=== PATIENT | female | born 1995 | race Asian ===

== ENCOUNTER 2023-10-29 20:31 | Inpatient (IN) ==
[2023-10-29] MEDS ORDERED: CALCIUM CARBONATE 500 MG CHEWABLE TAB PO PRN (20:51)
[2023-10-29] MEDS ORDERED: OXYTOCIN 30 UNITS/NSS 30 UNITS/500 ML BAG IV PRN (20:51)
[2023-10-29] MEDS ORDERED: ACETAMINOPHEN 500 MG TAB PO PRN (20:51)
[2023-10-29] MEDS ORDERED: LIDOCAINE 1% LOCAL 20 ML VIAL INFIL PRN (20:51)
--- NOTE | 2023-10-29 21:12 | History & Physical Report ---
Date of Service October 29, 2023 Assessment & Plan (1) Previous delivery affecting : Plan: Patient is a 28-year-old female with prior section done without trial of labor for severe preeclampsia at 35 weeks [place] her home country presents with spontaneous rupture of membranes for clear fluid and spontaneous onset of contractions. She would like to have a trial of labor and she understands the risks for delivery and had signed consent in the office at a prior visit. heart tracing is reassuring although her contractions are still fairly spaced apart. And she is grossly ruptured. She will walk and have intermittent monitoring at this time to see if this will help to get a better contraction pattern. Epidural when requested. Pitocin augmentation is an option if contractions do not begin to get more regular on their own. Admission and Anticipated Discharge Date Admission Date: October 29, 2023 History of Present Illness Primary Care Provider: NO PCP Patient is a 28-year-old 2 para 0-1-0-1 female EDC 11/10/2023 who presents at 38-2/7 weeks with spontaneous rupture membranes for clear fluid at 1900 hrs. she then began having spontaneous contractions that are currently between 10 to 15 minutes apart. GBS is negative. has been complicated by a prior section done at 35 weeks for severe preeclampsia there was no trial of labor offered to the patient. [place] and she does have the operative report that states her scar is a low transverse type. She would like a trial of labor if possible. consent had been signed during one of her prior office visits. Allergies Allergy/AdvReac Type Severity Reaction Status Date / Time No Known Allergies Allergy Verified 10/22/23 09:42 Home Medications Medication Instructions Recorded Confirmed Type xviotkoj-dsq-Hq-FA 1 mg PO DAILY 05/07/23 10/27/23 History [] aspirin 81 mg tablet,delayed 81 mg PO DAILY 07/22/23 10/27/23 History release (Adult Aspirin Regimen) breast pump #1 ea 09/02/23 10/22/23 Rx Patient History Medical History delivery Chicken pox Breast fibroadenoma Surgical History S/P section Family History Denies family history of Ovarian cancer Prostate cancer Breast cancer Colorectal cancer Social History Smoking Status: Never smoker Do You Dip or Chew Tobacco: No; Hx Alcohol Use: No Hx Substance Use: No Preferred Language: Ghanaian marital status: marital status details: Shaw Cardozo (28) [phone] Current Living Situation: Spouse and Family Current Living Situation Comment: lives with , daughter, no pets current occupational status: employed current occupation: remote work Feels Safe at Home: Yes Review of Systems All systems reviewed & are unremarkable except as noted in HPI & below Physical Exam Constitutional: WD/WN, vitals as above Psychiatric: A+Ox3, euthymic affect Genitourinary: OB Exam Abdomen: + vertex and + regular contractions (Q10-15 mins- moderate) Manual OB Exam: + cervical dilation 1 cm, + cervical effacem ent 50% and + station -1 OB Exam Monitor Tracing: + external FHT monitor used, + external uterine monitor used, + category I and + normal FHT variability Results & Data Vital Signs (Past 12 Hours) Vital Signs Pulse BP 10/29/23 20:44 82 120/85 Code Status & VTE Plan VTE Prophylaxis Plan VTE Prophylaxis will be ordered: No Coding Level of Care Code None Diagnoses Previous delivery affecting O34.219
[2023-10-29 21:17] LABS: Hematocrit (blood only) 34.9 % (37.0-47.0); Hemoglobin 10.8 g/dl (12.0-16.0); Mean Corpuscular Hemoglobin 25.4 pg (25.0-34.0); Mean Corpuscular Hgb Conc 30.9 g/dL (32.0-36.0); Mean Corpuscular Volume 82.1 fL (80.0-100.0); Mean Platelet Volume 9.9 fL (9.4-12.4); Platelet Count 325 K/uL (130-400); Red Blood Count 4.25 M/uL (4.20-5.40); White Blood Count 10.45 K/ul (4.8-10.8)
[2023-10-29] MEDS: LACTATED RINGER'S 1,000 ML IV PRN (21:43)
[2023-10-29] MEDS ORDERED: ePHEDrine sulfate 50 MG/ML AMP ONE (21:54)
[2023-10-29] MEDS ORDERED: LIDOCAINE 2% MPF LOCAL 5 ML VIAL EPI PRN (22:07)
[2023-10-29] MEDS ORDERED: ROPIVACAINE 0.5% PF 5 MG/ML 20 ML VIAL EPI PRN (22:07)
[2023-10-29] MEDS ORDERED: SODIUM CHLORIDE 0.9% PF INJ 10 ML VIAL EPI PRN (22:07)
[2023-10-29] MEDS ORDERED: diphenhydrAMINE 50 MG/ML VIAL IV PRN (22:07)
[2023-10-29] MEDS ORDERED: NALBUPHINE HCL 5 MG in SYRINGE 0 ML IV PRN (22:07)
[2023-10-29] MEDS ORDERED: BUPIVACAINE 0.25% PF 30 ML VIAL EPI STA (22:07)
[2023-10-29] MEDS ORDERED: ePHEDrine sulfate 50 MG/ML AMP IV PRN (22:07)
[2023-10-29] MEDS ORDERED: BUPIVACAINE 0.25% PF 30 ML VIAL EPI PRN (22:07)
[2023-10-29] MEDS ORDERED: fentaNYL citrate PF 100 MCG/2 ML VIAL EPI PRN (22:07)
[2023-10-29] MEDS ORDERED: SODIUM CHLORIDE 0.9% PF INJ 10 ML VIAL EPI STA (22:07)
[2023-10-29] MEDS ORDERED: LIDOCAINE 2%/EPINEPHRINE 1:200,000 20 ML PF EPI STA (22:07)
[2023-10-29] MEDS ORDERED: NALOXONE HCL 0.4 MG/1 ML VIAL/CARP IV PRN (22:07)
[2023-10-29] MEDS ORDERED: NALOXONE HCL 1 MG in SODIUM CHLORIDE 0.9% 1,000 ML IV PRN (22:07)
[2023-10-29] MEDS ORDERED: fentaNYL citrate PF 100 MCG/2 ML VIAL EPI STA (22:07)
--- NOTE | 2023-10-29 22:07 | Anesthesiology Consultation ---
Date of Service October 29, 2023 Assessment & Plan Chart Review Chart Review: Patient NOT seen in Pre Admission Testing and Acceptable Risk for Labor Epidural Consults Requested none History Height/Weight Height: 5 ft 0.24 in Weight: 72.756 kg Allergies Allergy/AdvReac Type Severity Reaction Status Date / Time No Known Allergies Allergy Verified 10/22/23 09:42 Medications Home Medications Medication Instructions Recorded Confirmed Last Taken usjjfncq-jnb-Mf-FA 1 mg PO DAILY 05/07/23 10/27/23 Unknown [] aspirin 81 mg tablet,delayed 81 mg PO DAILY 07/22/23 10/27/23 Unknown release (Adult Aspirin Regimen) breast pump #1 ea 09/02/23 10/22/23 Unknown Past Medical History Medical History delivery Chicken pox Breast fibroadenoma Past Family History Family History Denies family history of Ovarian cancer Prostate cancer Breast cancer Colorectal cancer Past Surgical History Surgical History S/P section Social History Smoking Status: Never smoker Do You Dip or Chew Tobacco: No Hx Alcohol Use: No Hx Substance Use: No substance use type: does not use Physical Exam Vital Signs Last Vital Signs Pulse 82 10/29/23 20:59 Resp 20 10/29/23 20:59 BP 120/85 10/29/23 20:59 Testing Laboratory Results 10/29/23 21:01
[2023-10-29] MEDS: fentaNYL citrate PF 100 MCG/2 ML VIAL ONE (22:31)
[2023-10-29] MEDS: SODIUM CHLORIDE 0.9% PF INJ 10 ML VIAL ONE (22:32)
[2023-10-29] MEDS: LIDOCAINE 2%/EPINEPHRINE 1:200,000 20 ML PF ONE (22:32)
[2023-10-29] MEDS: BUPIVACAINE 0.25% PF 30 ML VIAL ONE (22:32)
[2023-10-29] MEDS: fentANYL 2 MCG/ML BUPIVacaine 0.125%-NSS 100ML BAG ONE (22:33)
[2023-10-30] MEDS: ONDANSETRON INJ 2 MG/ML 2 ML VIAL IV PRN (04:42)
[2023-10-30] MEDS: ACETAMINOPHEN 1,000 MG/100 ML VIAL IV STA ×2 (06:07→06:11)
[2023-10-30] MEDS: fentANYL 2 MCG/ML BUPIVacaine 0.125%-NSS 100ML BAG EPI PRN (06:57)
[2023-10-30] MEDS ORDERED: fentaNYL citrate PF 100 MCG/2 ML VIAL ONE (07:33)
[2023-10-30] MEDS ORDERED: LIDOCAINE 2% MPF LOCAL 5 ML VIAL ONE (07:33)
--- NOTE | 2023-10-30 10:32 | Labor Progress Brief Note ---
Date of Service October 30, 2023 Subjective Comfortable with epidural. FHT Cat 1 [place] Q 4 SVE anterior lip, 100, 1+ Cervix retractible with practice push. Will start pushing. Assessment & Plan Admission and Anticipated Discharge Date Admission Date: October 29, 2023 Results & Data Vital Signs (Past 12 Hours) Vital Signs Temp Pulse Resp BP Pulse Ox O2 Del Method 10/30/23 10:27 84 100 10/30/23 10:22 84 98 10/30/23 10:19 83 127/82 10/30/23 10:17 94 H 99 10/30/23 10:12 85 97 10/30/23 10:07 86 97 10/30/23 10:06 82 124/82 10/30/23 10:02 84 98 10/30/23 10:00 18 10/30/23 10:00 18 10/30/23 09:57 88 97 10/30/23 09:52 82 97 10/30/23 09:49 88 102/70 10/30/23 09:47 83 98 10/30/23 09:42 83 98 10/30/23 09:37 80 98 10/30/23 09:34 79 112/72 10/30/23 09:32 79 98 10/30/23 09:27 67 100 10/30/23 09:22 88 98 10/30/23 09:20 87 117/60 10/30/23 09:17 89 100 10/30/23 09:15 16 10/30/23 09:15 36.9 C 16 10/30/23 09:12 85 97 10/30/23 09:07 97 10/30/23 09:07 83 10/30/23 09:07 82 128/73 10/30/23 09:02 85 97 10/30/23 09:00 18 10/30/23 09:00 18 10/30/23 08:57 84 98 10/30/23 08:52 79 99 10/30/23 08:51 91 H 106/64 10/30/23 08:47 88 99 10/30/23 08:42 90 98 10/30/23 08:37 95 H 97 10/30/23 08:36 83 116/59 L 10/30/23 08:32 86 97 10/30/23 08:27 88 97 10/30/23 08:22 89 97 10/30/23 08:20 84 109/58 L 10/30/23 08:17 89 98 10/30/23 08:12 90 98 10/30/23 08:07 90 97 10/30/23 08:05 90 112/69 10/30/23 08:02 97 H 98 10/30/23 07:57 96 H 98 10/30/23 07:52 88 97 10/30/23 07:50 85 117/60 10/30/23 07:47 93 H 96 10/30/23 07:42 98 H 97 10/30/23 07:37 87 97 10/30/23 07:36 97 H 121/71 10/30/23 07:32 106 H 97 10/30/23 07:27 100 H 96 10/30/23 07:22 97 H 97 10/30/23 07:20 103 H 118/64 10/30/23 07:17 97 H 96 10/30/23 07:12 95 H 97 10/30/23 07:11 Room Air 10/30/23 07:11 102 H 111/59 L 10/30/23 07:10 18 10/30/23 07:10 37.1 C 18 10/30/23 07:07 101 H 96 10/30/23 07:06 96 H 113/61 10/30/23 07:02 106 H 97 10/30/23 07:00 18 10/30/23 07:00 18 10/30/23 06:57 100 H 96 10/30/23 06:52 90 96 10/30/23 06:50 93 H 108/57 L 10/30/23 06:47 105 H 98 10/30/23 06:42 104 H 98 10/30/23 06:37 103 H 98 10/30/23 06:36 100 H 114/63 10/30/23 06:32 96 H 98 10/30/23 06:27 95 H 99 10/30/23 06:22 105 H 98 10/30/23 06:20 101 H 103/70 10/30/23 06:17 107 H 98 10/30/23 06:12 97 H 99 10/30/23 06:07 103 H 100 10/30/23 06:05 95 H 99/54 L 10/30/23 06:02 91 H 97 10/30/23 05:57 92 H 98 10/30/23 05:52 95 H 98 10/30/23 05:50 91 H 100/52 L 10/30/23 05:47 99 H 98 10/30/23 05:45 38.2 C H 10/30/23 05:42 101 H 99 10/30/23 05:37 101 H 98 10/30/23 05:34 92 H 101/57 L 10/30/23 05:32 89 97 10/30/23 05:27 101 H 99 10/30/23 05:22 97 H 98 10/30/23 05:19 80 107/57 L 10/30/23 05:17 79 99 10/30/23 05:12 80 98 10/30/23 05:07 81 98 10/30/23 05:05 83 108/57 L 10/30/23 05:02 81 97 10/30/23 04:57 78 99 10/30/23 04:52 84 100 10/30/23 04:50 16 10/30/23 04:50 16 10/30/23 04:49 94 H 107/59 L 10/30/23 04:47 89 100 10/30/23 04:42 114 H 99 10/30/23 04:37 107 H 100 10/30/23 04:35 81 108/59 L 10/30/23 04:32 89 100 10/30/23 04:27 94 H 96 10/30/23 04:22 88 100 10/30/23 04:19 102 H 102/59 L 10/30/23 04:18 18 10/30/23 04:18 36.8 C 18 10/30/23 04:17 96 H 100 10/30/23 04:12 87 100 10/30/23 04:07 85 99 10/30/23 04:04 93 H 101/57 L 10/30/23 04:02 88 98 10/30/23 03:57 84 98 10/30/23 03:52 86 97 10/30/23 03:49 89 96/53 L 10/30/23 03:47 83 97 10/30/23 03:42 89 97 10/30/23 03:37 88 97 10/30/23 03:34 91 H 103/56 L 10/30/23 03:32 82 98 10/30/23 03:27 83 97 10/30/23 03:22 88 97 10/30/23 03:19 94 H 98/56 L 10/30/23 03:17 84 97 10/30/23 03:12 84 97 10/30/23 03:07 86 97 10/30/23 03:04 87 107/62 10/30/23 03:02 84 97 10/30/23 02:57 85 97 10/30/23 02:52 84 97 10/30/23 02:49 89 104/67 10/30/23 02:47 93 H 98 10/30/23 02:42 95 H 97 10/30/23 02:37 98 H 97 10/30/23 02:34 94 H 96/58 L 10/30/23 02:32 100 H 99 10/30/23 02:27 98 H 98 10/30/23 02:24 16 10/30/23 02:24 37.0 C 16 10/30/23 02:22 84 98 10/30/23 02:19 83 108/62 10/30/23 02:17 81 96 10/30/23 02:12 87 97 10/30/23 02:07 91 H 98 10/30/23 02:04 91 H 100/55 L 10/30/23 02:02 90 97 10/30/23 01:57 91 H 97 10/30/23 01:52 95 H 98 10/30/23 01:49 86 92/51 L 10/30/23 01:47 81 97 10/30/23 01:42 87 97 10/30/23 01:37 88 98 10/30/23 01:34 98 H 106/56 L 10/30/23 01:32 88 98 10/30/23 01:27 86 98 10/30/23 01:22 89 98 10/30/23 01:19 88 106/63 10/30/23 01:17 88 99 10/30/23 01:12 89 98 10/30/23 01:07 85 99 10/30/23 01:04 83 109/65 10/30/23 01:02 88 99 10/30/23 00:57 88 100 10/30/23 00:52 86 99 10/30/23 00:49 75 107/67 10/30/23 00:47 89 99 10/30/23 00:42 86 99 10/30/23 00:37 82 99 10/30/23 00:35 16 10/30/23 00:35 36.8 C 16 10/30/23 00:34 83 10/30/23 00:34 87 108/70 92 10/30/23 00:32 93 H 99 10/30/23 00:27 93 H 99 10/30/23 00:22 91 H 99 10/30/23 00:20 82 104/68 10/30/23 00:17 100 H 100 10/30/23 00:12 88 98 10/30/23 00:07 90 99 10/30/23 00:04 90 100/62 10/30/23 00:02 76 99 10/29/23 23:57 86 98 10/29/23 23:52 78 97 10/29/23 23:50 79 111/65 10/29/23 23:49 88 107/61 10/29/23 23:47 80 98 10/29/23 23:42 77 98 10/29/23 23:37 82 99 10/29/23 23:35 75 99/59 L 10/29/23 23:32 80 100 10/29/23 23:27 74 100 10/29/23 23:22 75 100 10/29/23 23:20 78 101/66 10/29/23 23:17 83 99 10/29/23 23:12 73 100 10/29/23 23:07 73 100 10/29/23 23:02 100 10/29/23 23:02 74 10/29/23 23:02 74 109/67 10/29/23 22:57 100 10/29/23 22:57 73 10/29/23 22:57 78 107/63 10/29/23 22:52 100 10/29/23 22:52 85 10/29/23 22:52 84 114/72 10/29/23 22:47 87 114/70 100 10/29/23 22:43 96 H 113/64 10/29/23 22:42 99 H 100 10/29/23 22:37 87 100 10/29/23 22:36 89 114/67 10/29/23 22:35 36.7 C 10/29/23 22:34 83 114/71 10/29/23 22:32 90 100 06/25/24 22:31 86 125/65 Coding Level of Care Code None
--- NOTE | 2023-10-30 12:04 | Labor Progress Brief Note ---
Date of Service October 30, 2023 Subjective pt feeling urge to push. Assessment & Plan (1) Desires (vaginal after ) trial: Plan begin 2nd stage. anticip . fhts categ 1, occas variable, categ 2. Admission and Anticipated Discharge Date Admission Date: October 29, 2023 Physical Exam Constitutional: WD/WN, vitals as above Genitourinary: Manual OB Exam: + cervical dilation 10 cm, + cervical effacement 100% and + station + 3 OB Exam Monitor Tracing: + external FHT monitor used, + external uterine monitor used (q2-3), + category I and + normal FHT variability pushed with good maternal effort. Results & Data Vital Signs (Past 12 Hours) Vital Signs Temp Pulse Resp BP Pulse Ox O2 Del Method 10/30/23 11:57 101 H 100 10/30/23 11:52 94 H 97 10/30/23 11:49 89 114/68 10/30/23 11:47 94 H 97 10/30/23 11:42 94 H 98 10/30/23 11:37 95 H 96 10/30/23 11:35 89 112/71 10/30/23 11:32 88 97 10/30/23 11:30 18 10/30/23 11:30 18 10/30/23 11:27 88 97 10/30/23 11:22 87 97 10/30/23 11:19 83 115/61 10/30/23 11:17 89 97 10/30/23 11:12 89 97 10/30/23 11:07 87 97 10/30/23 11:04 88 103/55 L 10/30/23 11:02 87 98 10/30/23 11:01 18 10/30/23 11:01 98.2 F 18 10/30/23 10:57 91 H 97 10/30/23 10:52 92 H 130/58 L 98 10/30/23 10:47 105 H 99 10/30/23 10:42 94 H 100 10/30/23 10:37 110 H 99 10/30/23 10:35 99 H 135/83 10/30/23 10:32 84 98 10/30/23 10:27 84 100 10/30/23 10:22 84 98 10/30/23 10:19 83 127/82 10/30/23 10:17 94 H 99 10/30/23 10:12 85 97 10/30/23 10:07 86 97 10/30/23 10:06 82 124/82 10/30/23 10:02 84 98 10/30/23 10:00 18 10/30/23 10:00 18 10/30/23 09:57 88 97 10/30/23 09:52 82 97 10/30/23 09:49 88 102/70 10/30/23 09:47 83 98 10/30/23 09:42 83 98 10/30/23 09:37 80 98 10/30/23 09:34 79 112/72 10/30/23 09:32 79 98 10/30/23 09:27 67 100 10/30/23 09:22 88 98 10/30/23 09:20 87 117/60 10/30/23 09:17 89 100 10/30/23 09:15 16 10/30/23 09:15 98.4 F 16 10/30/23 09:12 85 97 10/30/23 09:07 97 10/30/23 09:07 83 10/30/23 09:07 82 128/73 10/30/23 09:02 85 97 10/30/23 09:00 18 10/30/23 09:00 18 10/30/23 08:57 84 98 10/30/23 08:52 79 99 10/30/23 08:51 91 H 106/64 10/30/23 08:47 88 99 10/30/23 08:42 90 98 10/30/23 08:37 95 H 97 10/30/23 08:36 83 116/59 L 10/30/23 08:32 86 97 10/30/23 08:27 88 97 10/30/23 08:22 89 97 10/30/23 08:20 84 109/58 L 10/30/23 08:17 89 98 10/30/23 08:12 90 98 10/30/23 08:07 90 97 10/30/23 08:05 90 112/69 10/30/23 08:02 97 H 98 10/30/23 07:57 96 H 98 10/30/23 07:52 88 97 10/30/23 07:50 85 117/60 10/30/23 07:47 93 H 96 10/30/23 07:42 98 H 97 10/30/23 07:37 87 97 10/30/23 07:36 97 H 121/71 10/30/23 07:32 106 H 97 10/30/23 07:27 100 H 96 10/30/23 07:22 97 H 97 10/30/23 07:20 103 H 118/64 10/30/23 07:17 97 H 96 10/30/23 07:12 95 H 97 10/30/23 07:11 Room Air 10/30/23 07:11 102 H 111/59 L 10/30/23 07:10 18 10/30/23 07:10 98.8 F 18 10/30/23 07:07 101 H 96 10/30/23 07:06 96 H 113/61 10/30/23 07:02 106 H 97 10/30/23 07:00 18 10/30/23 07:00 18 10/30/23 06:57 100 H 96 10/30/23 06:52 90 96 10/30/23 06:50 93 H 108/57 L 10/30/23 06:47 105 H 98 10/30/23 06:42 104 H 98 10/30/23 06:37 103 H 98 10/30/23 06:36 100 H 114/63 10/30/23 06:32 96 H 98 10/30/23 06:27 95 H 99 10/30/23 06:22 105 H 98 10/30/23 06:20 101 H 103/70 10/30/23 06:17 107 H 98 10/30/23 06:12 97 H 99 10/30/23 06:07 103 H 100 10/30/23 06:05 95 H 99/54 L 10/30/23 06:02 91 H 97 10/30/23 05:57 92 H 98 10/30/23 05:52 95 H 98 10/30/23 05:50 91 H 100/52 L 10/30/23 05:47 99 H 98 10/30/23 05:45 100.8 F H 10/30/23 05:42 101 H 99 10/30/23 05:37 101 H 98 10/30/23 05:34 92 H 101/57 L 10/30/23 05:32 89 97 10/30/23 05:27 101 H 99 10/30/23 05:22 97 H 98 10/30/23 05:19 80 107/57 L 10/30/23 05:17 79 99 10/30/23 05:12 80 98 10/30/23 05:07 81 98 10/30/23 05:05 83 108/57 L 10/30/23 05:02 81 97 10/30/23 04:57 78 99 10/30/23 04:52 84 100 10/30/23 04:50 16 10/30/23 04:50 16 10/30/23 04:49 94 H 107/59 L 10/30/23 04:47 89 100 10/30/23 04:42 114 H 99 10/30/23 04:37 107 H 100 10/30/23 04:35 81 108/59 L 10/30/23 04:32 89 100 10/30/23 04:27 94 H 96 10/30/23 04:22 88 100 10/30/23 04:19 102 H 102/59 L 10/30/23 04:18 18 10/30/23 04:18 98.2 F 18 10/30/23 04:17 96 H 100 10/30/23 04:12 87 100 10/30/23 04:07 85 99 10/30/23 04:04 93 H 101/57 L 10/30/23 04:02 88 98 10/30/23 03:57 84 98 10/30/23 03:52 86 97 10/30/23 03:49 89 96/53 L 10/30/23 03:47 83 97 10/30/23 03:42 89 97 10/30/23 03:37 88 97 10/30/23 03:34 91 H 103/56 L 10/30/23 03:32 82 98 10/30/23 03:27 83 97 10/30/23 03:22 88 97 10/30/23 03:19 94 H 98/56 L 10/30/23 03:17 84 97 10/30/23 03:12 84 97 10/30/23 03:07 86 97 10/30/23 03:04 87 107/62 10/30/23 03:02 84 97 10/30/23 02:57 85 97 10/30/23 02:52 84 97 10/30/23 02:49 89 104/67 10/30/23 02:47 93 H 98 10/30/23 02:42 95 H 97 10/30/23 02:37 98 H 97 10/30/23 02:34 94 H 96/58 L 10/30/23 02:32 100 H 99 10/30/23 02:27 98 H 98 10/30/23 02:24 16 10/30/23 02:24 98.6 F 16 10/30/23 02:22 84 98 10/30/23 02:19 83 108/62 10/30/23 02:17 81 96 10/30/23 02:12 87 97 10/30/23 02:07 91 H 98 10/30/23 02:04 91 H 100/55 L 10/30/23 02:02 90 97 10/30/23 01:57 91 H 97 10/30/23 01:52 95 H 98 10/30/23 01:49 86 92/51 L 10/30/23 01:47 81 97 10/30/23 01:42 87 97 10/30/23 01:37 88 98 10/30/23 01:34 98 H 106/56 L 10/30/23 01:32 88 98 10/30/23 01:27 86 98 10/30/23 01:22 89 98 10/30/23 01:19 88 106/63 10/30/23 01:17 88 99 10/30/23 01:12 89 98 10/30/23 01:07 85 99 10/30/23 01:04 83 109/65 10/30/23 01:02 88 99 10/30/23 00:57 88 100 10/30/23 00:52 86 99 10/30/23 00:49 75 107/67 10/30/23 00:47 89 99 10/30/23 00:42 86 99 10/30/23 00:37 82 99 10/30/23 00:35 16 10/30/23 00:35 98.2 F 16 10/30/23 00:34 83 10/30/23 00:34 87 108/70 92 10/30/23 00:32 93 H 99 10/30/23 00:27 93 H 99 10/30/23 00:22 91 H 99 10/30/23 00:20 82 104/68 06/26/24 00:17 100 H 100 10/30/23 00:12 88 98 10/30/23 00:07 90 99 10/30/23 00:04 90 100/62 Coding Level of Care Code None Diagnoses Desires (vaginal after ) trial O34.219
[2023-10-30] MEDS: OXYTOCIN 30 UNITS/NSS 30 UNITS/500 ML BAG IV PRN (12:54)
[2023-10-30] MEDS ORDERED: oxyCODONE/ACETAMINOPHEN 5mg/325mg TAB PO PRN (13:01)
[2023-10-30] MEDS ORDERED: HYDROCORTISONE ACETATE 25 MG SUPP PR PRN (13:01)
[2023-10-30] MEDS ORDERED: OXYTOCIN 30 UNITS/NSS 30 UNITS/500 ML BAG IV PRN (13:01)
[2023-10-30] MEDS ORDERED: bisacodyL 10 MG SUPP PR PRN (13:01)
--- NOTE | 2023-10-30 13:01 | Delivery Summary ---
Vaginal Delivery Summary Date of Service October 30, 2023 Vaginal Delivery Summary and 3rd Degree LAC (partial) The patient dilated to complete and pushed to deliver a viable male infant Apgars 9 and 9 via over partial 3rd degree perineal laceration. Mouth and nose bulb suctioned at perineum. Thin meconium noted. Shoulders and body delivered with ease. was vigorous and crying at . Cord clamped at 30 seconds of life and to maternal abdomen where the cord was then doubly clamped and cut. Placenta delivered spontaneously and intact, three-vessel cord. Hemostasis achieved with dilute pitocin and uterine massage and drainage of the bladder for approximately 450 cc under sterile conditions. Cervix and sulci intact. QBL 212 cc. Laceration repaired in layers with 2-0 and 3-0 vicry. Mother and baby stable in recovery. [facility] Vaginal Delivery Charge Delivery Type Details: and 3rd Degree LAC (partial)
[2023-10-30] MEDS ORDERED: OXYTOCIN 20 UNITS/LR 1,002 ML IV SCH (13:15)
--- NOTE | 2023-10-30 13:34 | Anesthesia Procedure Note ---
Date of Service October 30, 2023 Anesthesia Post Epidural Note Vital Signs Vital Signs: Temp Pulse Resp BP Pulse Ox O2 Del Method 36.8 C 90 18 116/57 L 98 Room Air 10/30/23 11:01 10/30/23 13:29 10/30/23 13:00 10/30/23 13:29 10/30/23 12:52 10/30/23 07:11 Notes Mental Status: alert / awake / arousable Nausea / Vomiting: adequately controlled Pain: adequately controlled Airway Patency, RR, SpO2: stable & adequate BP & HR: stable & adequate Hydration State: stable & adequate Neuraxial Anesthesia: was administered and sensory block is resolving Anesthetic Complications: no major complications apparent and Pt Satisfied with anesthetic care Epidural: Removed without complications and With tip intact
[2023-10-30] MEDS: IBUPROFEN 600 MG TAB PO PRN (14:54)
[2023-10-30] MEDS: DOCUSATE SODIUM 100 MG CAP PO SCH (20:52)
[2023-10-30 22:29] VITALS: RESP 18
[2023-10-30] MEDS: DIPHTHER/TETAN/PERTUS Vaccine (Tdap, Adol/Adult) 0.5mL IM ONE (23:43)
[2023-10-31] MEDS: ACETAMINOPHEN 325 MG TAB PO PRN (04:41)
[2023-10-31 04:48] VITALS: O2SAT 98
--- NOTE | 2023-10-31 06:10 | Obstetrical Progress Note ---
Date of Service <Ken Mosquera DO - Last Filed: 10/31/23 06:13> October 31, 2023 Assessment & Plan <Ken Mosquera - Last Filed: 10/31/23 06:13> (1) Encounter for assessment: Plan 28 y/o PPD#1: Eating well, voiding well, ambulating well Vitals reviewed, WNL Pain well controlled with Tylenol and Motrin Routine post care - OOB, ambulation, diet progression as tolerated Will have 6 week follow up with Dr. Camacho <Tahira Velez, DO - Last Filed: 10/31/23 08:50> (1) Encounter for assessment: Subjective <Ken Mosquera - Last Filed: 10/31/23 06:13> Ambulation: ambulating normally Voiding: no voiding problems Diet Tolerance:: regular diet Lochia:: Moderate Feeding Type:: breast feeding Increased pain this morning compared to yesterday, fairly well controlled with Tylenol and Motrin Review of Systems -Denies fever or chills -Denies dyspnea, chest pain, or palpitations -Denies dysuria -Denies headache or changes in vision Physical Exam <Ken Mosquera - Last Filed: 10/31/23 06:13> General: Alert and oriented. No acute distress Cardiac: Regular rate and rhythm, no murmurs appreciated Respiratory: Lungs clear to auscultation bilaterally, No increased work of breathing Abdominal: Soft, non-tender, non-distended. Bowel sounds present. Uterus: Uterine fundus firm, palpable below umbilicus Extremities: No lower extremity edema, calves non-tender bilaterally Results & Data <Ken Mosquera - Last Filed: 10/31/23 06:13> Vital Signs (Past 12 Hours) Vital Signs Temp Pulse Resp BP Pulse Ox O2 Del Method 10/31/23 04:35 36.4 C L 92 H 18 110/77 98 Room Air 10/31/23 00:40 36.5 C 96 H 18 116/82 100 Room Air 10/30/23 20:35 36.4 C L 90 18 105/66 98 Room Air Supervising Physician <Tahira Velez, DO - Last Filed: 10/31/23 08:50> Co-Signing Physician Notes Resident Physician Supervision Note: I was present with Dr. Mosquera during the history and exam. I discussed the case with the resident and agree with the findings and plan as documented in the note. Any exceptions or clarifications are listed here: PPD1 doing well, routine care. Documented By: Tahira Velez DO Resident Activity Tracking <Ken Mosquera DO - Last Filed: 10/31/23 06:13> Resident Involvement: Resident Care Provided Care Provided: OB Delivery
[2023-10-31] MEDS: PRENATAL VITAMIN 1 TAB PO SCH (08:55)
[2023-10-31] MEDS: BENZOCAINE 20% SPRY 85 APPLN/85 GM CAN EXT PRN (08:55)
--- NOTE | 2023-11-01 06:57 | Obstetrical Progress Note ---
Date of Service <Ken Mosquera DO - Last Filed: 11/01/23 07:11> November 01, 2023 Assessment & Plan <Ken Mosquera DO - Last Filed: 11/01/23 07:11> (1) Encounter for assessment: Plan 28 y/o PPD#2: Eating well, voiding well, ambulating well Vitals reviewed, WNL Pain well controlled with Motrin Routine post care - OOB, ambulation, diet progression as tolerated Will have 6 week follow up with Dr. Camacho <Jing Camacho MD, FACOG - Last Filed: 11/01/23 07:17> (1) Encounter for assessment: Subjective <Ken Mosquera DO - Last Filed: 11/01/23 07:11> Ambulation: ambulating normally Voiding: no voiding problems Diet Tolerance:: regular diet Lochia:: Moderate Feeding Type:: breast feeding pain well controlled with Motrin Review of Systems -Denies fever or chills -Denies dyspnea, chest pain, or palpitations -Denies dysuria -Denies headache or changes in vision Physical Exam <Ken Mosquera DO - Last Filed: 11/01/23 07:11> General: Alert and oriented. No acute distress Cardiac: Regular rate and rhythm, no murmurs appreciated Respiratory: Lungs clear to auscultation bilaterally, No increased work of breathing Abdominal: Soft, non-tender, non-distended. Bowel sounds present. Uterus: Uterine fundus firm, palpable below umbilicus Extremities: No lower extremity edema, calves non-tender bilaterally Results & Data <Ken Mosquera DO - Last Filed: 11/01/23 07:11> Vital Signs (Past 12 Hours) Vital Signs Temp Pulse Resp BP Pulse Ox O2 Del Method 11/01/23 01:55 36.7 C 82 18 114/77 98 Room Air 10/31/23 19:39 36.4 C L 81 18 110/74 98 Room Air Supervising Physician <Jing Camacho MD, FACOG - Last Filed: 11/01/23 07:17> Co-Signing Physician Notes Resident Physician Supervision Note: I interviewed and examined the patient. Discussed with Dr. Mosquera and agree with findings and plan as documented in the note. Any exceptions or clarifications are listed here: stable, doing well. no concern. ready to go home. reviewed her laceration at her request. ff 2 down nt, nt calves. no cords or redness. f/u 6wk pp. rh pos, ri, . Documented By: Jing Camacho MD, FACOG Resident Activity Tracking <Ken Mosquera DO - Last Filed: 11/01/23 07:11> Resident Involvement: Resident Care Provided Care Provided: OB Delivery
[2023-11-01 10:22] VITALS: BP 120/79; PULSE 74; TEMP 97.3
== END 2023-11-01 13:40 | disposition home or self-care (01) | DRG 768 ==
LOC: OPB 20:31 → 4E1 20:32 → 4S1 21:52 → 4E2 10-30 15:30